=== PATIENT | female | born 1980 | race Caucasian/White ===

== ENCOUNTER 2016-07-30 04:41 | Emergency (ER) | payer OTHER ==
[~2016-07-30] VITALS: Ht 172.7 cm; Wt 68.0 kg
--- NOTE | 2016-07-30 04:57 | ED GENERAL ADULT ---
History of Present Illness General Chief Complaint: General Adult Stated Complaint: "PER PT VOMITING, ABD PAIN, HORRIBLE COLD" Source: patient Exam Limitations: no limitations Vital Signs & Intake/Output Vital Signs & Intake/Output Vital Signs Date Time Temp Pulse Resp B/P Pulse O2 O2 Flow FiO2 Ox Delivery Rate 07/30 0634 99.4 96 18 108/71 97 Room Air 07/30 0457 Room Air 07/30 0451 98.2 98 18 118/80 99 Room Air Allergies Coded Allergies: No Known Allergies (07/30/16) Reconcile Medications Ondansetron (Zofran Odt) 4 MG TAB.RAPDIS 1 TAB SL Q6P PRN NAUSEA/VOMITING Oseltamivir Phosphate (Tamiflu) 75 MG CAPSULE 1 CAP PO BID FLU Triage Nurses Notes Reviewed? yes : No Patient currently breastfeeds: No HPI: Patient presents for evaluation of abdominal pain vomiting and a horrible cold. Patient states that she has been suffering from a head cold over the past 2 days or so it seems to be moving into her chest. She has had a stuffy nose and sore throat and her ears feel full. In addition to the vomiting she has had diarrhea and chills. She denies any chest pain or dyspnea. She has been taking Gatorade and Mucinex without much improvement. She has yet to try ibuprofen or Tylenol. She denies any known ill contacts but she does work as a teacher. There has been a lot of students who have been ill with viral illnesses. She denies recent travel. In addition to the above she experienced a syncopal episode about 3:30 this afternoon while on the toilet. Past History Travel History Traveled to [place] past 21 day No Medical History Any Pertinent Medical History? see below for history Surgical History Surgical History: non-contributory Psychosocial History What is your primary language Sudanese Tobacco Use: Never used ETOH Use: occasional use Family History Hx Contributory? No Review of Systems Review of Systems Constitutional: Reports: no symptoms. EENTM: Reports: see HPI. Respiratory: Reports: no symptoms. Cardiovascular: Reports: no symptoms. GI: Reports: see HPI. Genitourinary: Reports: no symptoms. Musculoskeletal: Reports: no symptoms. Skin: Reports: no symptoms. Neurological/Psychological: Reports: no symptoms. Hematologic/Endocrine: Reports: no symptoms. Immunologic/Allergic: Reports: no symptoms. All Other Systems: Reviewed and Negative Physical Exam Physical Exam General Appearance: SEE BELOW Comments: Gen.: Well-nourished, well-developed, no acute respiratory distress. Appears ill but not toxic. Head: Normocephalic, atraumatic. Eyes: Normal inspection bilaterally Ears: Normal inspection bilaterally Nose: Normal inspection Throat/mouth : Moist mucosa, no oropharyngeal erythema or soft tissue swelling, no exudates. Neck: Supple, full range of motion, no goiter, no lymphadenopathy Heart: Regular rate and rhythm, no murmurs rubs or gallops Lungs: Clear to auscultation bilaterally with normal air entry Chest: Nontender Back: Normal range of motion Abdomen: Soft, nontender, nondistended, normal bowel sounds Extremities: Normal range of motion grossly, equal radial pulses, no cyanosis clubbing or edema Neurologic: Cranial nerves grossly intact, speech is clear Skin: warm and dry Psychiatric: Calm, cooperative, no apparent delusions or hallucinations Lymphatic: No cervical lymphadenopathy Core Measures ACS in differential dx? No CVA/TIA Diagnosis: No Severe Sepsis Present: No Septic Shock Present: No Progress Differential Diagnoses I considered the following diagnoses in my evaluation of the patient: Viral syndrome, bacterial infection Plan of Care: Orders Procedure Date/time Status RAPID VIRAL INFLUENZA A 07/30 0508 Complete Initial ED EKG: none Comments: 07/30/2016 6:33:31 AM Fartun is feeling better and appears more comfortable clinically. I have notified her of her positive flu swab. Departure Departure Disposition: HOME OR SELF CARE Condition: Stable Clinical Impression Primary Impression: Influenza B Referrals: BLAINE CLOUD,ANA Baron (PCP/Family) Additional Instructions: Clear liquid diet including Gatorade and Powerade and advance diet as tolerated. Zofran as needed for nausea or vomiting. Tamiflu as prescribed. Follow-up with your primary care doctor on Sunday if not improving. Return if any concerns or sudden worsening. Thank you for choosing the [facility] for your care. It was a pleasure to serve you today. Francisco Rosas M.D. [facility] Departure Forms: Customer Survey General Discharge Information Prescriptions: Current Visit Scripts Ondansetron (Zofran Odt) 1 TAB SL Q6P PRN NAUSEA/VOMITING #10 TAB Oseltamivir Phosphate (Tamiflu) 1 CAP PO BID #10 CAP Critical Care Note Critical Care Note Critical Care Time: non-applicable
[2016-07-30 06:34] VITALS: BP 108/71
[2016-07-30] MEDS ORDERED: ZOFRAN ODT4 M1 SL (06:36)
[2016-07-30] MEDS ORDERED: TAMIFLU75 M1 PO (06:36)
== END 2016-07-30 06:47 ==
LOC: ERH 04:41
DX: J10.1 Influenza due to other identified influenza virus with other respiratory manifestations (principal)
CPT/HCPCS: 87804; 87804-59; 96361; 96374; J2405